=== PATIENT | male | born 1970 | race Caucasian/White ===

== ENCOUNTER → 2025-08-25 | Outpatient (CLI) | payer OTHER ==
--- NOTE | 2025-08-27 08:26 | HMCIMG ---
EXAM: CT Cardiac calcium scoring. CLINICAL HISTORY: HEARTSAVER (Hx) / Ca Score. TECHNIQUE: Thin collimated axial CT cardiac images were obtained. A CT scan is done according to ALARA (As Low As Reasonably Achievable). CONTRAST: None. COMPARISON: None provided. FINDINGS: Calcium Score: VESSEL Lesions Calcium score(Agatson) LM 0 0 LAD 2 0.9 LCX 1 15.8 RCA 2 74.7 Total 5 91.5 IMPRESSION: The total calcium score is 91.5, corresponding to the 82nd percentile based on the RUVALCABA calculator. Mild prominence of the left ventricular chamber. Trace pericardial effusion along the anterior pericardial cavity. Mild calcific atherosclerotic changes in the aorta and its branches. Minimal hiatal hernia. /Jostin
== END | disposition home or self-care (01) ==
LOC: RAH 14:29
PROVIDERS: ATTEND Internal Medicine
DX: Z13.6 Encounter for screening for cardiovascular disorders (principal)
CPT/HCPCS: 75571